=== PATIENT | female | born 1965 | race Caucasian/White ===

== ENCOUNTER → 2018-10-31 | Outpatient (CLI) | payer BC ==
--- NOTE | 2018-10-31 22:56 | MR ---
MRI CERVICAL SPINE: CLINICAL HISTORY: Neck and shoulder pain with burning and tingling and some numbness for 2 to 3 month s, history of prior surgery per patient. Nerve compression per order. TECHNIQUE: Multiplanar, multisequence imaging of the cervical spine is performed without and with IV contrast, 7.5 cc of gadolinium was given intravenously. COMPARISON: Outside cervical spine x-ray October 04, 2018 FINDINGS: Sagittal images of the cervical spine show the craniocervical junction to appear within nor mal limits. The cervical and upper thoracic spinal cord is normal in caliber and signal. There is sl ight grade 1 retrolisthesis of C3 on C4 and greater retrolisthesis of C4 on C5. There is artifact fro m anterior fusion plate C5-C7 levels. The vertebral body and intravertebral disk heights are within n ormal limits above and below surgical levels. The bone marrow signal intensity is within normal limi ts. No suspicious postcontrast enhancement is seen. Axial images show the C2-C3 level to have some uncovertebral facet degenerative changes causing asymm etric mild left-sided neural foraminal narrowing. Axial images at C3-C4 level showed spondylolisthesis and broad based posterior disc protrusion with u ncovertebral facet degenerative changes bilaterally, there is effacement of the anterior thecal sac, there is [id number] bilateral neural foraminal narrowing noted. Axial images at C4-C5 level shows spondylosis with central disc protrusion, there is uncovertebral fa cet degenerative changes greater on the right, there is effacement anterior thecal sac and mild left with more advanced right-sided neural foraminal narrowing felt present. Axial images at C5-C6 and C6-C7 level show artifact from surgical changes otherwise are felt within n ormal limits. Axial images at C7-T1 level shows some artifact from surgical change otherwise are felt within normal limits. IMPRESSION: Postsurgical change C5-C7 level. Spondylolisthesis and degenerative changes C3-C4 and gre ater at C4-C5 levels are noted as detailed above.
== END | disposition home or self-care (01) ==
LOC: RADMRIMAIN 07:39
PROVIDERS: ATTEND Family Medicine
DX: M48.02 Spinal stenosis, cervical region (principal); M43.12 Spondylolisthesis, cervical region; M50.221 Other cervical disc displacement at C4-C5 level; M47.812 Spondylosis without myelopathy or radiculopathy, cervical region; Z98.1 Arthrodesis status
CPT/HCPCS: 72156; A9585

== ENCOUNTER → 2024-02-12 | Outpatient (CLI) | payer BC ==
--- NOTE | 2024-02-14 14:21 | MR ---
EXAMINATION TYPE: MR brain/cspine wo DATE OF EXAM: 02/12/2024 5:17 PM COMPARISON: 01/09/2019. CLINICAL INDICATION: Female, 58 years old with history of R41.3 Memory loss; M54.2 Cervicalgia; PHH, Migraines, Memory issues, Neck pain, C5/C6 radiculopathy, Neck surgery TECHNIQUE: Multi planar, multi sequence imaging was performed through the brain including: T1, T2, Inversion rec overy, Diffusion weighted imaging, and gradient echo imaging. No gadolinium was given. Multi planar, multi sequence imaging was performed utilizing: T1-weighted, T2-weighted, and turbo inv ersion recovery imaging of the cervical spine. IV Contrast: None FINDINGS: The hammond-white junctions, ventricular system, basal cisterns appear unremarkable. Patchy areas of h igh T2 signal intensity are seen within the periventricular white matter. Midline structures show no abnormality. Diffusion-weighted imaging shows no evidence of restricted diffusion. The susceptibility weighted images do not reveal any evidence for micro-hemorrhage. The bone marrow signal is within normal limits. Paranasal sinuses and mastoid air cells: No significant paranasal sinus disease. Mild leftward deviat ion of the nasal septum with abena bullosa of the middle turbinates bilaterally suggested. Visualized orbits: Orbital contents are intact. Alignment: The cervical vertebral bodies have preserved heights. Alignment is within normal limits gi joey patient positioning. Bones: Scattered Modic endplate changes with osteophytes and disc space narrowing. Multilevel degener ative disc disease is noted and most pronounced at the C3-C4 Vertebral levels with disc osteophyte co mplexes disc space narrowing and facet and uncovertebral joint arthropathy. Fixation hardware at C5-C 6 and C7 levels. There is fusion of these vertebral bodies. Cord: The spinal cord is unremarkable with regards to their signal intensity and morphology. Discs: Intervertebral disc signal is maintained. C2-C3: No significant disc pathology. The spinal canal is patent. No neural foraminal stenosis. C3-C4: A disc osteophyte complex is present with mild spinal canal stenosis. Bilateral facet and unc overtebral joint arthropathy are present with mild bilateral neural foraminal stenosis. C4-C5: A disc osteophyte complex is present with moderate spinal canal stenosis. Bilateral facet and uncovertebral joint arthropathy are present with moderate bilateral neural foraminal stenosis. C5-C6: No significant disc pathology. The spinal canal is patent. No neural foraminal stenosis. C6-C7: No significant disc pathology. The spinal canal is patent. No neural foraminal stenosis. C7-T1: No significant disc pathology. The spinal canal is patent. No neural foraminal stenosis. Other: None. IMPRESSION: 1. Postsurgical changes without evidence for disc herniation. 2. Multilevel disc degeneration with associated osteoarthritic changes. Neural foraminal and spinal canal stenosis worse at C4-C% with moderate spinal canal and bilateral neural foraminal stenosis. 3. No evidence of intracranial mass or acute/subacute infarct. 4. Nonspecific white matter changes, likely secondary to small vessel ischemic disease. [facility], , 02/14/2024 2:18 PM
== END | disposition home or self-care (01) ==
LOC: RADMRIMAIN 16:18
PROVIDERS: ATTEND Psychiatry & Neurology Neurology
DX: M50.31 Other cervical disc degeneration, high cervical region (principal); M48.02 Spinal stenosis, cervical region; M47.812 Spondylosis without myelopathy or radiculopathy, cervical region; R41.3 Other amnesia; R90.82 White matter disease, unspecified
CPT/HCPCS: 70551; 72141